=== PATIENT | male | born 1940 | race Caucasian/White ===

== ENCOUNTER 2018-12-20 13:59 | Inpatient (IN) ==
--- OUTSIDE RECORDS SUMMARY | 2018-12-20 14:58 | External Medical Summary | Continuity of Care Document ---
:1940 Author Name Chantel Pacheco Address Unavailable Unavailable , Care Team Providers Name Role Phone Unavailable Unavailable Unavailable Samy Springer M.D. 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 Junior Springer Start: 10-Mar-2014 Quantity: 60 Refills: 0 OneTouch Delica Lancets Fine; test twice daily Junior Springer Start: 26-Dec-2013 Quantity: 1 100 Miscellaneous Michael x Refills: 11 OneTouch Verio In Vitro Strip; Test 2 times daily Junior Springer Start: 26-Dec-2013 Quantity: 3 25 Strip Box Refills: 11 Spiriva Respimat 2.5 MCG/ACT Inhalation Aerosol Solution; INHALE 2 PUFFS ONCE DAILY Junior Springer Start: 13-Jun-2014 Quantity: 1 4 GM Inhaler Refills: 11 Procedures History of Tonsillectomy Status: Complet ed History of Bronchoscopy (Diagnostic) Sta tus: Completed History of Thoracoscopy (Therapeutic) St atus: Completed History of Thoracotomy Status: Completed Immunizations Prevnar 13 Intramuscular Suspension On: 26-Dec-2013 11:05 Lot #: [id number], iPrint Family History Mother Family history of Cirrhosis, alcoholic (571.2) (K70.30) Stat us: Active Father Family history of Cirrhosis, alcoholic (571.2) (K70.30) Stat us: Active Social History - Smoking Status Former smoker Interventions SuppliesOxygen; Done: 18 Oct 2014 Plan of Treatment Planned Observations Planned Goals not documented Results No Known Results Results not documented
[2018-12-20] MEDS ORDERED: ONDANSETRON INJ 2 MG/ML 2 ML VIAL IV PRN (15:52)
[2018-12-20] MEDS ORDERED: ACETAMINOPHEN 325 MG TAB PO PRN (15:52)
[2018-12-20 16:58] LABS: Creatinine Clr Calc Pharmacy 46.3 ml/min; Est GFR (African American) 55.2; Est GFR (Non-African American) 47.6
[2018-12-20] MEDS: ENOXAPARIN INJ 40 MG/0.4 ML SYR SQ SCH (18:03)
--- NOTE | 2018-12-20 20:29 | History & Physical Report ---
Date of Service December 20, 2018 Assessment & Plan (1) Pneumonia: community acquired pneumonia mild case, no fever, WBC normal, no hypoxia Rocephin and Zithromax, plan for 7 day course may be ready for d/c tomorrow if urology does not wish to perform any inpatient work up (2) Renal mass: incidental finding on CTA chest at [facility] consult urology to see tomorrow no hematuria, no flank pain, no weight loss (3) Lower urinary tract symptoms (LUTS): admits to frequency, urgency, hesitancy, several episodes of nocturia each night no hematuria urology consult for the renal mass, defer to them on treatment for the LUTS (4) Chronic obstructive pulmonary disease: no wheezing, no respiratory distress, no signs of exacerbation (5) Diabetes type 2, controlled: diagnosed with this in 2013 he was started on Metformin at that time no longer taking check HbA1c in the AM (6) Tobacco abuse, in remission: quit in 2013 (7) CKD stage 3 due to type 2 diabetes mellitus: Cr is 1.4 repeat in the morning (8) Adrenal mass: also evident on CT in 2013 no access to outpatient records with [facility], was supposed to have renin, metanephrines presume that work up was benign as he did not require any surgical intervention History of Present Illness Chief Complaint: I wasn't feeling well Primary Care Provider: Stanislav Chen 78 male with history of COPD, tobacco abuse in the past, right upper lobe mass s/p resection who was transferred to [facility] due to right upper lobe pneumonia as well as incidental finding of left renal mass, left adrenal mass and small 7mm abnormality in the liver. He said that he was feeling ill for two days prior to presentation. He had a fever, chills, night sweats. He had a slight cough, was not producing much sputum. His appetite was intact. He has been moving his bowels. Denies feeling short of breath or wheezing. He had his pneumonia vaccine last week and he though that maybe the symptoms were due to the shot but when they didn't go away he went to the ED at [facility]. In the ED his WBC was normal, he was afebrile, vitals were stable, not hypoxic. Cr was elevated at 1.4 but electrolytes stable. CXR showed a right upper lobe infiltrate. CTA of the chest was negative for PE, showed the right upper lobe infiltrate. Incidental finding of left renal mass, left adrenal mass, small lesion in the liver. He was given Rocephin and Zithromax, transfer requested due to the renal mass which their radiologist considered renal cell carcinoma until proven otherwise. The patient quit smoking in 2013 after he was hospitalized for pneumonia. He had a bronchoscopy at that time for possible lung mass. He had biopsy that was negative for malignancy. He underwent resection of several large lymph nodes that were all negative for malignancy. He was diagnosed with COPD on PFT, he is prescribed Spiriva which he takes. He has not had any issues with COPD exacerbation. Of note, on the discharge summary from 2013 there was mention of an adrenal mass that was going to be worked up by endocrinology outpatient with [facility]. There was also description of a small liver lesion. He was told that he had type II diabetes at that time and was started on Metformin. The patient admits that he does not follow up regularly with his physician. Discussed the renal mass, he admits to some lower urinary tract symptoms. He describes urinary frequency, urgency, nocturia. He denies seeing any hematuria or experiencing dysuria. 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 Allergies Allergy/AdvReac Type Severity Reaction Status Date / Time No Known Allergies Allergy Unverified 12/16/14 10:25 Home Medications Home Medications Medication Instructions Recorded Confirmed Type Albuterol (Ventolin) 2 puff INHALATION QID PRN 5 Days 11/26/13 History #0 inhaler Tiotropium [place] (Spiriva 1 cap INHALATION DAILY PRN #0 11/20/14 History Handihaler) inhaler Past Med/Surg History Medical History CKD stage 3 due to type 2 diabetes mellitus Chronic obstructive pulmonary disease Colon polyp Diabetes type 2, controlled Pneumonia Tobacco abuse, in remission Surgical History H/O colonoscopy H/O lymph node biopsy History of bronchoscopy Family History Other Hypertension Social History Preferred Language: Divehi Communication Ability: Effective Beliefs That Will Affect Care: Holiness Current Living Situation: Spouse Other Information That Helps Us Care for You: No Feels Safe at Home: Yes Smoking Status: Former smoker Second Hand Exposure: No ; Tobacco Cessation Education Requested by Patient: No Hx Alcohol Use: No Hx Substance Use: No Review of Systems Review of Systems: All systems reviewed & are unremarkable except as noted in HPI & below Constitutional: + fever, + chills, + sweats, + fatigue and + weakness Respiratory: + cough; no dyspnea, no hemoptysis, no sputum production and no wheezing Cardiovascular: no chest pain and no edema Gastrointestinal: no abdominal pain, no nausea, no vomiting, no constipation and no diarrhea/loose stools Genitourinary: + difficulty urinating, + urinary frequency, + urinary hesitancy, + post-void dribbling and + nocturia; no dysuria, no urinary incontinence and no hematuria Physical Exam Constitutional: WD/WN, vitals as above Eyes: PERRL, conjunctivae normal, anicteric sclerae ENMT: external ear and nose normal, oropharynx normal Neck: trachea midline, no thyromegaly Respiratory: normal respiratory effort and + cough; no respiratory distress Auscultation: lungs clear to auscultation bilaterally; no wheezes Cardiovascular: RRR, no murmur, no edema Gastrointestinal (Abdomen): normal bowel sounds, soft, nontender, no hepatosplenomegaly Musculoskeletal: no cyanosis or clubbing, extremities motor strength 5/5 Skin: no rashes, warm and dry Neurologic: patellar DTR's 2+ bilat, sensation intact and PERRL, EOMI, accommodation nl, no face palsy, no dysarthria Psychiatric: A+Ox3, euthymic affect Lymphatic: no cervical or axillary lymphadenopathy Results & Data Vital Signs (Past 12 Hours) Vital Signs Temp Resp Pulse Ox 12/20/18 15:01 36.3 C L 20 96 Code Status & VTE Plan Code Status full code VTE Prophylaxis Plan VTE Prophylaxis will be ordered: Yes PG Care Time/CCT Total # of Minutes Spent Total Time Spent with Patient: Total time spent is greater than 50% in coordination of care (as documented) at patient's floor/unit and/or counseling patient:
[2018-12-21 05:46] LABS: Hematocrit (blood only) 37.8 % (42-52); Immature Granulocytes # (auto) 0.04 K/uL (0.00-0.02); Immature Granulocytes % (auto) 0.3 %; Lymphocytes # (auto) 0.82 K/uL (1.2-3.4); Lymphocytes % (auto) 6.5 %; Mean Corpuscular Hemoglobin 30.4 pg (25-34); Mean Corpuscular Hgb Conc 34.4 g/dL (32-36); Mean Corpuscular Volume 88.3 fL (80-100); Mean Platelet Volume 10.5 fL (7.4-10.4); Monocytes # (auto) 0.44 K/uL (0.11-0.59); Monocytes % (auto) 3.5 %; Neutrophils # (auto) 11.39 K/uL (1.4-6.5); Neutrophils % (auto) 89.7 %; Platelet Count 192 K/uL (130-400); RDW Coefficient of Variation 12.2 % (11.5-14.5); Red Blood Count 4.28 M/uL (4.7-6.1); White Blood Count 12.69 K/uL (4.8-10.8)
[2018-12-21 05:57] LABS: Estimated Average Glucose 114 mg/dl; Hemoglobin A1C 5.6 % (4.5-5.6)
[2018-12-21 06:14] LABS: BUN Creatinine Ratio 23.2 (10-20); Calcium 8.8 mg/dl (8.5-10.1); Creatinine Clr Calc Pharmacy 58.2 ml/min; Est GFR (African American) 72.8; Est GFR (Non-African American) 62.8; Potassium 4.2 mmol/L (3.5-5.1)
[2018-12-21] MEDS ORDERED: cefTRIAXone SODIUM 2,000 MG in DEXTROSE 5% 50 ML IV SCH (09:00)
[2018-12-21] MEDS ORDERED: AZITHROMYCIN 250 MG TAB PO SCH (09:00)
--- NOTE | 2018-12-21 10:34 | Urology Consultation ---
Date of Consultation December 21, 2018 Assessment & Plan (1) Lower urinary tract symptoms (LUTS): 2cm left upper pole renal mass, 3.7cm left adrenal mass, minor LUTS consistent with BPH. Discussed left renal and adrenal mass and need for further outpatient workup. Patient is agreeable to this. LUTS are baseline, not bothersome. Appropriate outpatient URO follow up has been arranged. Thank you for allowing us to participate in the inpatient care of Mr. Ruiz. Please contact our servi ce if we can assist further during hospitalization. (2) Adrenal mass: (3) Renal mass: History of Present Illness Attending Physician: Gustabo Murray DO History of Present Illness 78 YO male seen today in consultation for incidentally found left renal mass. Patient has COPD and history of lung surgery, admitted to [facility] and then transferred to [facility]. Patient had CT chest completed at [facility] which reports a 2cm renal mass in left upper pole as well as a 3.7cm left adrenal mass metastasis vs. adenoma. Patient reports that he has never seen a urologist before. Reports some baseline LUTS including nocturia, somewhat increased frequency, consistent with BPH. No abdominal/flank pain. No fevers/chills. No nausea/vomiting. Allergies Allergy/AdvReac Type Severity Reaction Status Date / Time No Known Allergies Allergy Unverified 12/16/14 10:25 Home Medications Home Medications Medication Instructions Recorded Confirmed Type Albuterol (Ventolin) 2 puff INHALATION QID PRN 5 Days 11/26/13 History #0 inhaler Tiotropium [place] (Spiriva 1 cap INHALATION DAILY PRN #0 11/20/14 History Handihaler) inhaler Patient History Medical History CKD stage 3 due to type 2 diabetes mellitus Chronic obstructive pulmonary disease Colon polyp Diabetes type 2, controlled Pneumonia Tobacco abuse, in remission Surgical History H/O colonoscopy H/O lymph node biopsy History of bronchoscopy Family History Other Hypertension Social History Preferred Language: Ukrainian Communication Ability: Effective Beliefs That Will Affect Care: Jehovah'S Witness Current Living Situation: Spouse Other Information That Helps Us Care for You: No Feels Safe at Home: Yes Smoking Status: Former smoker Second Hand Exposure: No ; Tobacco Cessation Education Requested by Patient: No Hx Alcohol Use: No Hx Substance Use: No Review of Systems Review of Systems: Per HPI. Physical Exam Physical Exam: WN/WD NAD. +productive cough. No JVD. Abd soft/nontender. A&Ox3, appropriate affect. Results & Data Vital Signs (Past 12 Hours) Vital Signs Temp Pulse Resp BP Pulse Ox 12/21/18 07:14 36.8 C 83 20 134/65 92 12/20/18 23:30 36.4 C L 18 117/70 95 PG Care Time/CCT Total # of Minutes Spent Total Time Spent with Patient: Total time spent is greater than 50% in coordination of care (as documented) at patient's floor/unit and/or counseling patient:
--- NOTE | 2018-12-21 11:56 | Discharge Summary ---
Date of Service December 21, 2018 Admission HPI Per Admitting Provider 78 male with history of COPD, tobacco abuse in the past, right upper lobe mass s/p resection who was transferred to [facility] due to right upper lobe pneumonia as well as incidental finding of left renal mass, left adrenal mass and small 7mm abnormality in the liver. He said that he was feeling ill for two days prior to presentation. He had a fever, chills, night sweats. He had a slight cough, was not producing much sputum. His appetite was intact. He has been moving his bowels. Denies feeling short of breath or wheezing. He had his pneumonia vaccine last week and he though that maybe the symptoms were due to the shot but when they didn't go away he went to the ED at [facility]. In the ED his WBC was normal, he was afebrile, vitals were stable, not hypoxic. Cr was elevated at 1.4 but electrolytes stable. CXR showed a right upper lobe infiltrate. CTA of the chest was negative for PE, showed the right upper lobe infiltrate. Incidental finding of left renal mass, left adrenal mass, small lesion in the liver. He was given Rocephin and Zithromax, transfer requested due to the renal mass which their radiologist considered renal cell carcinoma until proven otherwise. The patient quit smoking in 2013 after he was hospitalized for pneumonia. He had a bronchoscopy at that time for possible lung mass. He had biopsy that was negative for malignancy. He underwent resection of several large lymph nodes that were all negative for malignancy. He was diagnosed with COPD on PFT, he is prescribed Spiriva which he takes. He has not had any issues with COPD exacerbation. Of note, on the discharge summary from 2013 there was mention of an adrenal mass that was going to be worked up by endocrinology outpatient with [facility]. There was also description of a small liver lesion. He was told brian t he had type II diabetes at that time and was started on Metformin. The patient admits that he does not follow up regularly with his physician. Discussed the renal mass, he admits to some lower urinary tract symptoms. He describes urinary frequency, urgency, nocturia. He denies seeing any hematuria or experiencing dysuria. 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 Principal Diagnosis Right upper lobe pneumonia Discharge Exam Constitutional WD/WN, vitals as above Eyes PERRL, conjunctivae normal, anicteric sclerae ENMT external ear and nose normal, oropharynx normal Neck trachea midline, no thyromegaly Respiratory normal respiratory effort and + cough; no respiratory distress Auscultation: lungs clear to auscultation bilaterally; no wheezes Cardiovascular RRR, no murmur, no edema Gastrointestinal (Abdomen) normal bowel sounds, soft, nontender, no hepatosplenomegaly Musculoskeletal no cyanosis or clubbing, extremities motor strength 5/5 Skin no rashes, warm and dry Neurologic patellar DTR's 2+ bilat, sensation intact and PERRL, EOMI, accommodation nl, no face palsy, no dysarthria Psychiatric A+Ox3, euthymic affect Lymphatic no cervical or axillary lymphadenopathy Discharge Data Allergies Allergy/AdvReac Type Severity Reaction Status Date / Time No Known Allergies Allergy Unverified 12/16/14 10:25 Consultations 12/20/18 15:56 Consult Case Management - Discharge Planning Routine 12/20/18 20:22 Consult Urology Routine Hospital Course (1) Pneumonia: community acquired pneumonia mild case, no fever, WBC normal on admission, up very slightly at 11k today, no hypoxia Rocephin and Zithromax, d/c on Cefdinir 300mg BID x 5 more days, Zithromax 500mg daily x 4 more days follow up with PCP in one week RECOMMEND REPEAT CXR IN 6 WEEKS TO DOCUMENT CLEARANCE OF INFILTRATE (2) Renal mass: incidental finding on CTA chest at [facility] 2cm mass on upper pole of left kidney urology recommends follow up in the clinic in a few weeks to discuss work up (3) Lower urinary tract symptoms (LUTS): admits to frequency, urgency, hesitancy, several episodes of nocturia each night no hematuria no plan for treatment at this time per urology could consider if the symptoms bother him, which they do not (4) Chronic obstructive pulmonary disease: no wheezing, no respiratory distress, no signs of exacerbation (5) Diabetes type 2, controlled: diagnosed with this in 2013 he was started on Metformin at that time no longer taking Hb A1c is 5.6% so he does NOT have DM (6) Tobacco abuse, in remission: quit in 2013 (7) CKD stage 3 due to type 2 diabetes mellitus: Cr is stable, 1.1 this morning (8) Adrenal mass: also evident on CT in 2013 no access to outpatient records with [facility], was supposed to have renin, metanephrines presume that work up was benign as he did not require any surgical intervention (9) Liver lesion: also noted on the CT at [facility] small at 7mm differential was hemangioma, liver met or HCC would recommend repeat imaging in 3 months he will have a work up of the left renal mass which should be top priority Total Time Total Time Spent Total Time Spent (In Minutes): 35 minutes Total Time Includes: Examination of the Patient, Discharge Planning, Medication Reconciliation and Communication With Other Providers Discharge Plan Discharge Items Patient Disposition: Home - Self-Care Reason For Visit: PNEUMONIA Discharge Diagnosis: Right upper lobe pneumonia left renal mass Condition on Discharge: Good Goals: complete treatment for pneumonia follow up with [facility] for work up of renal mass Activity: Resume your previous activity Non-emergency contact: Primary Care Provider Call non-emergency contact if: you have any medication questions, your symptoms worsen and you have a fever Follow-up/Referrals: Stanislav Chen [Primary Care Provider] - Diet: Regular Addtl Attending Provider Instructions: Medications: - CEFDINIR: take 300mg twice a day for 5 more days, next dose due tomorrow morning - ZITHROMAX: take 500mg daily for 4 more days, next dose due tomorrow morning Right upper lobe pneumonia no fever, WBC normal, responded well to Rocephin and Zithromax (antibiotics) CT of the chest shows the right upper lobe infiltrate, no evidence of a lung mass recommend repeating chest x-ray to document clearance of the infiltrate in 6 weeks, Dr. Chen can order this for you on follow up visit Left renal mass and left adrenal mass h/o adrenal mass on CT in 2013 but the renal mass is new finding seen here by Urology, recommend follow up in the office for further work up and recommendations their office number is [phone] recommend that you see them in 2-3 weeks after your pneumonia is sufficiently treated FOLLOW UP - Dr. Chen in one week, call his office to schedule appt in 5-7 days - [facility] in 2-3 weeks, see above Pending Studies at Discharge: No Stand-Alone Forms: My [employer], Smoking Cessation Medications and DC Order Prescriptions: New azithromycin 500 mg tablet 500 mg PO DAILY 4 Days Qty: 4 RF: 0 cefdinir 300 mg capsule 300 mg PO BID 5 Days Qty: 10 RF: 0 Continued Albuterol (Ventolin) inhaler 2 puff Inhalation QID PRN (Reason: qid) 5 Days Qty: 0 RF: 0 Tiotropium [place] (Spiriva Handihaler) 18 MCG/ AEROSOL,POWDR 1 cap Inhalation DAILY PRN (Reason: Wheezing) Qty: 0 RF: 0 Discharge Orders: Discharge Order (Routine); Ordered 12/21/18 Ordered By: Gustabo Murray Admission Data Admit Date/Time: 12/20/18 14:55 Attending Provider: Gustabo Murray Admit Provider: Gustabo Murray Primary Care Provider: Stanislav Chen Other Providers: Sravan Espino Other Interventions: Discharge Summary Assessment (RN) Last Done: 12/21/18 11:53 DC Date/Time DO NOT enter until pt leaves facility: 12/21/18 14:36
== END 2018-12-21 14:36 | disposition home or self-care (01) | DRG 195 ==
LOC: 4W 14:55

== ENCOUNTER 2019-09-17 05:26 | Observation (INO) ==
--- NOTE | 2019-09-06 09:38 | Anesthesiology Consultation ---
Date of Service September 06, 2019 Assessment & Plan (1) Encounter for pre-operative examination: Per PAT assessment on 09/05: Travel screen- Lives in [facility]. No known COVID-19 positive contacts. No current COVID-19 related symptoms. Per patient, surgeon arranging preop COVID testing for 09/11. Awaiting results. Chart Review Chart Review: Acceptable Risk for Surgery (pending COVID testing) and Patient seen in Pre Admission Testing Teaching & Discussion Pre-Anesthesia Teaching/Discussion Notes: Instructed NPO after midnight before surgery,except medications with 15 cc of water. Medication instructions provided according to the PAT guidelines. History Surgery Operation Date: 09/17/19 07:30 Proposed Procedures p Left Hand Assisted Laparoscopic Nephrectomy/Adrenalecctomy - Sravan Espino MD Height/Weight Height: 5 ft 8 in Weight: 80.6 kg Allergies Allergy/AdvReac Type Severity Reaction Status Date / Time No Known Allergies Allergy Verified 09/04/19 11:47 Medications Home Medications Medication Instructions Recorded Confirmed Last Taken No Known Home Medications 09/04/19 09/04/19 Unknown Past Medical History Medical History Adrenal mass per records Lung nodule (Inactive) Prediabetes Renal mass left Exercise / Class Metabolic Activity II 4-5 Yardwork/Stairs/Walk up hill Past Family History Family History Father Cirrhosis Mother Cirrhosis Sister Family history of diabetes mellitus Other Hypertension Past Surgical History Surgical History H/O lymph node biopsy History of bronchoscopy X2, EBUS with biopsy: 09/30/13: Grade 1 view, MAC#4, ETT 9.0 at [facility] History of colonoscopy History of lung surgery UPPER RT LUNG MASS REMOVED (BENIGN) History of tonsillectomy History of tooth extraction Past Anesthesia History No Hx of Anesthesia Complications and No Family Hx of Anesthesia Complications History of PONV No Hx of PONV and No Hx of Motion Sickness Social History Smoking Status: Former smoker tobacco type: cigarettes Do You Dip or Chew Tobacco: No Smoking End Date: Quit 5 YEARS AGO Hx Alcohol Use: No Hx Substance Use: No Review of Systems Patient denies chest pain, shortness of breath, dyspnea on exertion, feverl chills, cough, wheezing, palpitations. Physical Exam Vital Signs VITALS BP 150/81 P 60 TEMP 97.6 SP02 96%RA RESP 16 PHYSICAL Full neck and c-spine range of motion. Full TMJ range of motion. TMD 3 finger breaths Mallampati Score 3 Dentition: lower partial, upper front bonded tooth, lower front bridge, left lower side tooth mildly loose (dentist aware) Lungs: clear throughout to auscultation Cardiac: regular rate and rhythm, no murmurs noted Spine: normal Carotid arteries: negative bruit Extremities: no edema Testing Laboratory Results 09/06/19 10:03 09/06/19 10:03 Urine Color Yellow 09/06/19 Unknown Urine Appearance Clear (Clear) 09/06/19 Unknown Urine pH 5.5 (4.5-7.5) 09/06/19 Unknown Ur Specific [place] 1.010 (1.000-1.030) 09/06/19 Unknown Urine Protein Negative (Negative) 09/06/19 Unknown Urine Glucose (UA) Negative (Negative) 09/06/19 Unknown Urine Ketones Negative (Negative) 09/06/19 Unknown Urine Nitrite Negative (Negative) 09/06/19 Unknown Ur Leukocyte Esterase Negative (Negative) 09/06/19 Unknown Blood Type O Positive 09/06/19 10:03 Antibody Screen NEGATIVE 09/06/19 10:03 Electrocardiogram Date: 09/06/19 SB at 54bpm. RBBB. Possible inferior infarct. Good functional status, no cardiopulmonary complaints at PAT visit 09/06/19. Chest X-Ray Date: 09/06/19 FINDINGS: Chronic scarring and pleural thickening right pulmonary apex. Lungs otherwise appear clear. Diaphragms are smooth. No significant cardiac enlargement. IMPRESSION: Chronic change right apex. No acute process. Echocardiogram Date: 09/30/13 EF 60-65%. No RWMA. Grade I DD. No significant valvular disease.
--- NOTE | 2019-09-06 10:27 | XRay Report ---
XR chest Pre-admission PA/Lat CLINICAL HISTORY: PAT preoperative COMPARISON STUDY: 01/11/2019 FINDINGS: Chronic scarring and pleural thickening right pulmonary apex. Lungs otherwise appear clear. Diaphragms are smooth. No significant cardiac enlargement. IMPRESSION: Chronic change right apex. No acute process. ACT 112: Negative or not required by law. The above report was generated using voice recognition software. It may contain grammatical, syntax or spelling errors. Electronically signed by: Forrest Alejandra M.D. 09/06/2019 10:26 AM
[2019-09-06 10:42] LABS: Basophils # (auto) 0.03 K/uL (0-0.2); Basophils % (auto) 0.6 %; Eosinophils # (auto) 0.06 K/uL (0-0.5); Eosinophils % (auto) 1.1 %; Hemoglobin 15.6 g/dL (14.0-18.0); Immature Granulocytes # (auto) 0.02 K/uL (0.00-0.02); Immature Granulocytes % (auto) 0.4 %; Lymphocytes % (auto) 18.4 %; Mean Corpuscular Hemoglobin 30.5 pg (25-34); Mean Corpuscular Hgb Conc 34.7 g/dL (32-36); Mean Corpuscular Volume 88.1 fL (80-100); Mean Platelet Volume 10.3 fL (7.4-10.4); Monocytes # (auto) 0.36 K/uL (0.11-0.59); Monocytes % (auto) 6.6 %; Neutrophils # (auto) 3.97 K/uL (1.4-6.5); Neutrophils % (auto) 72.9 %; Platelet Count 157 K/uL (130-400); RDW Coefficient of Variation 12.2 % (11.5-14.5); RDW Standard Deviation 38.8 fL (36.4-46.3); Red Blood Count 5.11 M/uL (4.7-6.1); White Blood Count 5.44 K/uL (4.8-10.8)
[2019-09-06 10:45] LABS: Appearance Urine Clear (Clear); Bilirubin Urine Negative (Negative); Blood Urine Negative (Negative); Color Urine Yellow; Glucose Urine UA Negative (Negative); Ketones Urine Negative (Negative); Leukocyte Esterase Urine Negative (Negative); Nitrite Urine Negative (Negative); Protein Urine Negative (Negative); Urobilinogen Urine Negative (Negative); pH Urine 5.5 (4.5-7.5)
[2019-09-06 11:02] LABS: BUN Creatinine Ratio 16.1 (10-20); Calcium 9.2 mg/dl (8.5-10.1); Creatinine Clr Calc Pharmacy 49.9 ml/min; Est GFR (African American) 67.2; Potassium 3.9 mmol/L (3.5-5.1)
--- NOTE | 2019-09-06 12:56 | Electrocardiogram Report ---
Test Reason : Blood Pressure : / mmHG Vent. Rate : 054 BPM Atrial Rate : 054 BPM P-R Int : 160 ms QRS Dur : 142 ms QT Int : 462 ms P-R-T Axes : 065 -25 049 degrees QTc Int : 438 ms Sinus bradycardia Right bundle branch block Possible Inferior infarct , age undetermined Abnormal ECG When compared with ECG of 26-NOV-2013 09:17, Right bundle branch block is now Present Borderline criteria for Inferior infarct are now Present Confirmed by Stanley Carpenter ([id number]) on 09/06/2019 12:56:41 PM Referred By: Sravan Espino Confirmed By:Red Carpenter
[2019-09-17] MEDS ORDERED: LR 15ML/HR IV SCH (06:00)
[2019-09-17] MEDS ORDERED: CEFAZOLIN 2000MG 2,000 MG/15 ML SYR IV SCH (06:00)
[2019-09-17] MEDS ORDERED: HEPARIN SOD 5,000 UNIT/0.5 ML VIAL SC SCH (06:00)
[2019-09-17] MEDS ORDERED: ONDANSETRON INJ 2 MG/ML 2 ML VIAL IV PRN ×2 (06:32→12:04)
[2019-09-17] MEDS ORDERED: ePHEDrine sulfate 50 MG/ML AMP IV PRN (06:32)
[2019-09-17] MEDS ORDERED: ATROPINE SULFATE 0.1 MG/ML 10ML SYR IV PRN (06:32)
[2019-09-17] MEDS ORDERED: BUPIVACAINE 0.5 % 5 MG/1 ML MPF 30ML VIAL ONE (07:01)
[2019-09-17] MEDS ORDERED: fentaNYL citrate 100 MCG/2 ML VIAL ONE ×2 (07:08→08:16)
[2019-09-17] MEDS ORDERED: MIDAZOLAM HCL 1 MG/ML 2ML VIAL ONE (07:08)
[2019-09-17] MEDS ORDERED: ROCURONIUM BROMIDE 10 MG/ML 5 ML VIAL IV ONE (07:19)
--- NOTE | 2019-09-17 07:20 | History & Physical Bridge Note ---
Date of Service September 17, 2019 History & Physical Bridge Note I have examined the patient, reviewed the History & Physical and in the interval since the performance of the History & Physical I have noted the following changes of clinical significance: no changes noted
[2019-09-17] MEDS ORDERED: LIDOCAINE HCL 2% 2 ML VIAL/AMP(20MG/ML) INFIL ONE (08:16)
[2019-09-17] MEDS ORDERED: GLYCOPYRROLATE 0.2 MG/ML VIAL ONE (08:16)
[2019-09-17] MEDS ORDERED: DEXAMETHASONE SOD INJ 4 MG/ML VIAL ONE (08:16)
[2019-09-17] MEDS ORDERED: PHENYLEPHRINE 100MCG/ML 5ML SYR ONE (08:16)
[2019-09-17] MEDS ORDERED: PROPOFOL IV EMULSION 10 MG/ML 20 ML VIAL IV ONE (08:16)
[2019-09-17] MEDS ORDERED: NEOSTIGMINE METHYLSULFATE 5 MG/5 ML SYR ONE (08:16)
[2019-09-17] MEDS ORDERED: LARYING-O-JET KIT (LTA) ONE (08:16)
[2019-09-17] MEDS ORDERED: ONDANSETRON INJ 2 MG/ML 2 ML VIAL ONE (08:16)
[2019-09-17] MEDS ORDERED: ePHEDrine sulfate 50 MG/ML SYR ONE (08:16)
--- NOTE | 2019-09-17 09:45 | Operative Report ---
PG Post Operative Report Pre & Post Diagnosis Operation Date: 09/17/19 07:30 Pre-Op Diagnosis: Left Renal Mass, Left Adrenal mass Post-Op Diagnosis: Left Renal Mass, Left Adrenal mass I identified the patient and participated in the time-out.: Yes Procedure Operation Date: 09/17/19 07:30 Actual Procedures p Laparoscopic Hand Assisted Left Nephrectomy and Adrenalectomy(Left) - Sravan Espino MD Surgeon Stanley Espino MD Case Supervisor Fang Alfaro Estimated Blood Loss 100 Findings Consistent with Post-Op Diagnosis Specimens 1. Omental nodule 2. Kidney with adrenal Description of Procedure Patient was identified in the preoperative holding area, appropriate informed consents were reviewed and completed and he was transported to the operating suite. Upon arrival received appropriate preoperative antibiotics in the form of Ancef. Adequate general anesthesia was achieved and he was placed in a [id number] left side up lateral decubitus position where he was padded and braced in standard fashion. Following appropriate sterile prep and drape a Fowler style incision was made at the anticipated lower border of the kidney on the left lateral wall of the abdomen. This incision started at the lateral border of the rectus and was carried out laterally for approximately 10 cm. I carefully dissected through the superficial tissues until I identified the external oblique fascia. This was opened longitudinally in the direction of the fibers. I subsequently opened the internal oblique and the transversalis. I then pierced the peritoneum sharply and performed a finger sweep confirming a clear abdominal wall. I expanded my incision of the peritoneum to match my external incision and placed a GelPort retractor. Elevating the lateral wall of the abdomen I began to incise the white line of Toldt and mobilized the kidney medially. I carried this is far cephalad as I could reach through this incision. Of note, shortly after inspecting the internal aspect of the abdomen I noted a nodule on the omentum. This was white and hard in appearance. I excised this utilizing Bovie electrocautery and passed off the table as a specimen. I then asked the HandPort and insufflated the abdomen by placing a 12 mm trocar through the hand port. I passed the laparoscope and inspected. I confirmed a clear abdominal wall in the locations where I would like to place my photographer's assistant ports. I placed my hand back to the GelPort and advanced to 12 mm photographer's assistant ports on to my hand. The first was along the lateral border of the rectus around 6 cm below the costal margin. The other was approximately 8 cm below that. To begin the laparoscopic portion of the case I first inspected again and then began to continue my mobilization of the colon medially. I had dissected up to the upper pole of the kidney and I had the lateral attachments between the corner of the diaphragm, spleen and kidney that was still remaining. I incised these connections and then continued my peritoneal incision just inferior to the spleen to fully mobilize the colon medially. I was able to palpate the upper pole of the kidney at that time as well as the adrenal nodule. I began to continue to trace the anterior surface and superior surface of Gerota's fascia along the superior area to continue mobilization of the kidney. After reaching my limits in this area I turned my attention back to the inferior pole of the kidney. I continued mobilization of the inferior aspect of the colon until I could easily identify the full lower pole of the kidney. On the medial aspect of this identify the gonadal vein and I began to follow the anterior surface of the gonadal vein along the medial surface of the kidney. As I reached the hilar structures I easily identified a renal vein and could easily palpate the renal artery immediately behind it. I did create a window medial to the gonadal vein and ureter and used this to sweep onto the psoas muscle and elevate the kidney and stretch the hilar structures to facilitate this full dissection. Majority of this dissection was carried out utilizing a combination of blunt dissection and harmonic scalpel. After exposing the full surface circumferentially of the vein and palpating the artery immediately posterior to it, I created a window superior and passed a staple load to control the hilar structures and block. Of note, on preoperative imaging it appears that he may have a small branch of the artery that was passing anteriorly or a separate artery altogether. This was controlled with the same staple load. I controlled the vein medial to the adrenal vein and then I fired an additional staple load along the medial surface of the adrenal it from the aorta and other medial structures. Before completing my adrenal dissection I turned my attention to the inferior pole of the kidney and I controlled Gerota's fascia, the ureter, the gonadal vein with a single staple load in this area. Utilizing the harmonic scalpel I was able to complete my posterior and lateral dissection entirely freeing the lateral portion of the kidney. My previous dissection in the superior pole of the kidney help facilitate easy dissection of the upper corner of the kidney. I was able to trace the anterior surface of the adrenal and gently dissect superiorly to it ensuring I controlled all phrenic connections. On the medial side of the adrenal like used 1 additional staple load to complete my dissection. This entirely freed the kidney with adrenal included. The specimen was then extracted through the hand port. I then observe the renal fossa and found excellent hemostasis. As a precaution I did place some FloSeal along the medial edge of my dissection, the lateral edge of the aorta. I then gently guided the colon and omentum back into this space and removed the laparoscopic ports. I proceeded to close the hand port in 4 different layers beginning by reapproximating the peritoneum followed by the transversalis, then the internal oblique and the external oblique and ultimately closing the skin with a 4-0 running Monocryl. I did infiltrate all layers with half percent Marcaine in the midst of closure. The 2 upper laparoscopic ports were closed with a Vicryl through the fascia followed by 4-0 Monocryl for the skin. Patient was subsequently extubated and taken to the PACU in stable condition. There were no complications. Bindu Pemberton and Fang Koehler assisted me from incision to closure. I attest to the content of the Intraoperative Record and any orders documented therein. Any exceptions are noted below.
[2019-09-17] MEDS ORDERED: FLOSEAL HEMOSTATIC MATRIX 10ML TOP ONE (09:50)
[2019-09-17] MEDS: fentaNYL citrate 100 MCG/2 ML VIAL IV PRN ×3 (10:20→11:00)
[2019-09-17 10:48] LABS: Basophils # (auto) 0.02 K/uL (0-0.2); Basophils % (auto) 0.1 %; Eosinophils # (auto) 0.02 K/uL (0-0.5); Eosinophils % (auto) 0.1 %; Hematocrit (blood only) 44.1 % (42-52); Immature Granulocytes # (auto) 0.04 K/uL (0.00-0.02); Immature Granulocytes % (auto) 0.3 %; Lymphocytes # (auto) 0.92 K/uL (1.2-3.4); Lymphocytes % (auto) 6.9 %; Mean Corpuscular Hemoglobin 30.6 pg (25-34); Mean Platelet Volume 10.1 fL (7.4-10.4); Monocytes # (auto) 0.13 K/uL (0.11-0.59); Neutrophils # (auto) 12.25 K/uL (1.4-6.5); Neutrophils % (auto) 91.6 %; Platelet Count 166 K/uL (130-400); RDW Coefficient of Variation 12.1 % (11.5-14.5); RDW Standard Deviation 39.6 fL (36.4-46.3); White Blood Count 13.38 K/uL (4.8-10.8)
[2019-09-17 11:21] LABS: Calcium 8.8 mg/dl (8.5-10.1); Creatinine Clr Calc Pharmacy 42.4 ml/min; Est GFR (African American) 55.3; Est GFR (Non-African American) 47.7; Potassium 4.1 mmol/L (3.5-5.1)
--- NOTE | 2019-09-17 11:26 | Anesthesiology Progress Note ---
Date of Service September 17, 2019 Anesthesia Post Procedure Vital Signs Vital Signs: Temp Pulse Pulse Resp BP BP Pulse Ox 09/17/19 11:10 97.2 F L 45 L 15 160/75 H 94 09/17/19 11:00 43 L 15 161/81 H 95 09/17/19 10:50 44 L 14 167/79 H 97 09/17/19 10:40 44 L 12 162/75 H 98 09/17/19 10:30 40 L 12 171/77 H 94 09/17/19 10:20 40 L 15 151/77 H 100 09/17/19 10:10 44 L 16 175/80 H 100 09/17/19 10:02 97.9 F 45 L 16 173/85 H 100 09/17/19 05:56 97.9 F 74 18 174/96 H 97 Pain Intensity Abdomen: Pain Intensity: 3 Transfer of Care Handoff Completed per policy Notes Mental Status: alert / awake / arousable and participated in evaluation Patient Amnestic to Procedure: Yes Nausea / Vomiting: adequately controlled Pain: adequately controlled Airway Patency, RR, SpO2: stable & adequate BP & HR: stable & adequate Hydration State: stable & adequate Anesthetic Complications: no major complications apparent and Pt Satisfied with anesthetic care
[2019-09-17] MEDS ORDERED: ACETAMINOPHEN 325 MG TAB PO PRN (12:04)
[2019-09-17] MEDS ORDERED: OXYCODONE HCL IR 5 MG TAB (IMMEDIATE RELEASE) PO PRN (12:04)
[2019-09-17] MEDS ORDERED: MoRPHine SULFATE 2 MG/ML CARP IV PRN ×2 (12:32→12:33)
[2019-09-17] MEDS: OXYCODONE HCL IR 5 MG TAB (IMMEDIATE RELEASE) PO PRN ×3 (12:57→23:30)
[2019-09-17] MEDS: CEFAZOLIN 2000MG 2,000 MG/15 ML SYR IV SCH (17:06)
[2019-09-17] MEDS: LACTATED RINGER'S 1,000 ML IV SCH ×2 (17:06→22:20)
[2019-09-17] MEDS: HEPARIN SOD 5,000 UNIT/0.5 ML VIAL SQ SCH (21:28)
[2019-09-18] MEDS: CEFAZOLIN 2000MG 2,000 MG/15 ML SYR IV SCH (00:19)
[2019-09-18 06:00] LABS: Basophils # (auto) 0.01 K/uL (0-0.2); Basophils % (auto) 0.1 %; Hemoglobin 13.2 g/dL (14.0-18.0); Immature Granulocytes # (auto) 0.01 K/uL (0.00-0.02); Immature Granulocytes % (auto) 0.1 %; Lymphocytes # (auto) 0.86 K/uL (1.2-3.4); Lymphocytes % (auto) 12.2 %; Mean Corpuscular Hemoglobin 30.1 pg (25-34); Mean Corpuscular Hgb Conc 33.8 g/dL (32-36); Mean Platelet Volume 9.8 fL (7.4-10.4); Monocytes # (auto) 0.58 K/uL (0.11-0.59); Monocytes % (auto) 8.2 %; Neutrophils # (auto) 5.61 K/uL (1.4-6.5); Neutrophils % (auto) 79.4 %; Platelet Count 140 K/uL (130-400); RDW Coefficient of Variation 12.3 % (11.5-14.5); RDW Standard Deviation 39.5 fL (36.4-46.3); Red Blood Count 4.38 M/uL (4.7-6.1); White Blood Count 7.07 K/uL (4.8-10.8)
[2019-09-18 06:28] LABS: BUN Creatinine Ratio 10.1 (10-20); Calcium 8.6 mg/dl (8.5-10.1); Est GFR (African American) 37.8; Est GFR (Non-African American) 32.6
--- NOTE | 2019-09-18 07:41 | Urology Progress Note ---
Date of Service September 18, 2019 Assessment & Plan (1) Renal mass: Postop day #1 status post left radical nephrectomy and adrenalectomy for 2 large renal masses and an adrenal mass Recovering appropriately thus far Labs appropriateexpected rise in creatinine thus far Remove Garza catheter Advance diet Continue ambulation Subjective Subjectively doing well He was ambulatory last night Pain is modest Mildly hungry Physical Exam Physical Exam: Incisions appropriate, no ecchymosis or erythema Garza catheter in placeclear urine Constitutional: well developed and well nourished Respiratory: no respiratory distress Cardiovascular: Extremities: no pedal edema Gastrointestinal (Abdomen): Inspection/Auscultation: abdomen normal to inspection Results & Data Vital Signs (Past 12 Hours) Vital Signs Temp Pulse Resp BP Pulse Ox 09/18/19 06:21 37.1 C 73 18 144/73 H 91 09/18/19 03:44 37.4 C 74 16 123/72 92 09/18/19 02:30 37.2 C 09/18/19 00:32 37.3 C 09/17/19 23:16 37.7 C H 65 20 142/73 H 93 09/17/19 19:48 36.7 C 63 20 174/81 H 93 PG Care Time/CCT Total # of Minutes Spent Total Time Spent with Patient: Total time spent is greater than 50% in coordination of care (as documented) at patient's floor/unit and/or counseling patient: Coding Level of Care Code None Diagnoses Renal mass N28.89
[2019-09-18] MEDS: HEPARIN SOD 5,000 UNIT/0.5 ML VIAL SQ SCH ×2 (10:28→20:21)
[2019-09-18] MEDS: OXYCODONE HCL IR 5 MG TAB (IMMEDIATE RELEASE) PO PRN ×2 (10:36→19:46)
[2019-09-19] MEDS ORDERED: TAMSULOSIN HCL 0.4 MG CAP PO ONE (08:26)
[2019-09-19 08:28] LABS: Basophils # (auto) 0.01 K/uL (0-0.2); Basophils % (auto) 0.1 %; Eosinophils # (auto) 0.03 K/uL (0-0.5); Eosinophils % (auto) 0.4 %; Hematocrit (blood only) 39.2 % (42-52); Hemoglobin 13.2 g/dL (14.0-18.0); Immature Granulocytes # (auto) 0.01 K/uL (0.00-0.02); Immature Granulocytes % (auto) 0.1 %; Lymphocytes # (auto) 0.66 K/uL (1.2-3.4); Lymphocytes % (auto) 8.1 %; Mean Corpuscular Hemoglobin 29.9 pg (25-34); Mean Corpuscular Hgb Conc 33.7 g/dL (32-36); Mean Corpuscular Volume 88.9 fL (80-100); Mean Platelet Volume 10.3 fL (7.4-10.4); Monocytes # (auto) 0.59 K/uL (0.11-0.59); Monocytes % (auto) 7.2 %; Neutrophils # (auto) 6.89 K/uL (1.4-6.5); Neutrophils % (auto) 84.1 %; Platelet Count 132 K/uL (130-400); RDW Coefficient of Variation 12.3 % (11.5-14.5); RDW Standard Deviation 39.6 fL (36.4-46.3); Red Blood Count 4.41 M/uL (4.7-6.1); White Blood Count 8.19 K/uL (4.8-10.8)
--- NOTE | 2019-09-19 08:29 | Urology Progress Note ---
Date of Service September 19, 2019 Assessment & Plan (1) Renal mass: (2) Adrenal mass: Postop day 2 status post left adrenalectomy and nephrectomy Continue ambulation Await labs this morning Tentative plan for discharge home after lunch Subjective Doing extremely well Ambulatory Tolerating a diet Waiting on this morning's labs still He is voiding, he reports that he is voiding slightly more frequently than normal with slightly smaller volumes Physical Exam Physical Exam: Incisions appropriate, no ecchymosis, no erythema, abdomen soft Results & Data Vital Signs (Past 12 Hours) Vital Signs Temp Pulse Resp BP BP Pulse Ox 09/19/19 07:35 36.5 C 90 16 169/63 H 90 09/19/19 05:43 171/85 H 180/92 H 09/19/19 04:34 174/91 H 09/18/19 23:20 37.1 C 83 16 172/93 H 90 PG Care Time/CCT Total # of Minutes Spent Total Time Spent with Patient: Total time spent is greater than 50% in coordination of care (as documented) at patient's floor/unit and/or counseling patient: Coding Level of Care Code None Diagnoses Renal mass N28.89 Adrenal mass E27.8
--- NOTE | 2019-09-19 08:34 | Discharge Summary ---
Date of Service September 19, 2019 Admission HPI Per Admitting Provider 79-year-old man with 2 enlarging, solid renal masses on the left as well as a large adrenal mass Presenting for combined nephrectomy and adrenalectomy Principal Diagnosis Renal mass, adrenal mass Discharge Data Allergies Allergy/AdvReac Type Severity Reaction Status Date / Time No Known Allergies Allergy Verified 09/09/19 11:47 Procedures Performed Operation Date: 09/17/19 07:30 Actual Procedures p Laparoscopic Hand Assisted Left Nephrectomy(Left) - Sravan Espino MD s Adrenalectomy - Sravan Espino MD Hospital Course (1) Renal mass: Details of his procedure as dictated previously in the operative report, in summary he tolerated the procedure well and recovered appropriately He was ambulatory on the morning of day 1. He was tolerating a diet. His labs changed but stabilized appropriately with some rise in his creatinine. On the morning of postoperative day 2 he felt very well and was anxious to go home. He was discharged in stable condition and will follow-up as an outpatient (2) Adrenal mass: Total Time Total Time Spent Total Time Spent (In Minutes): 20 Total Time Includes: Examination of the Patient, Discharge Planning, Medication Reconciliation, Communication With Other Providers and Other Discharge Plan Discharge Items Reason For Visit: Renal Mass, Adrenal mass Discharge Diagnosis: renal mass, adrenal mass Activity: Per Instructions section Lifting: No more than 25 pounds Bathing: No limitations Sexual Activity: When tolerated Exercise/Sports: Gradually increase as tolerated Driving/Machine Use: Do not drive while on pain meds. Non-emergency contact: Urologist Call non-emergency contact if: you have any medication questions, your pain is worsening, you have a fever and your temperature is above 101.5 Follow-up/Referrals: Stanislav Chen [Primary Care Provider] - Diet: Regular Addtl Attending Provider Instructions: Please take all medications as prescribed and keep all follow-ups as scheduled. Please call our office at [phone] with any questions, concerns or need to reschedule appointments for any reason. We are happy to assist you. Recovering at home: We recommend having someone with you for the first few days after surgery to help care for you. It is okay to shower tomorrow. Please avoid swimming, bathing or using hot tub until incisions are well healed. Avoid driving until you are not requiring pain medication any further. Walk at least a few times a day. Increase your distance, as you feel able. Stairs in your home are okay. Please avoid strenuous or sexual activity until your follow-up. We recommend using stool softener (i.e. Colace) to prevent constipation and s training, especially the first two weeks post operatively. Call [facility] at [phone] if you experience: Chest pain or trouble breathing (call 493 or go to the hospital). Fever of 101F or higher Symptoms of infection at incision site, including redness or swelling, warmth, or bad-smelling drainage If you have catheter, and you notice: o Bloody urine or drainage that is dark red or has large clots (Please remember a small amount of blood is normal) o No drainage from the catheter for more than 6 hours o The catheter comes out of your bladder Pain that is not controlled with medicines Pending Studies at Discharge: Yes Studies:: pathology Stand-Alone Forms: My [facility] [place], Smoking Cessation Medications and DC Order Prescriptions: New tamsulosin 0.4 mg capsule 0.4 mg PO HS Qty: 30 RF: 11 hydrocodone-acetaminophen 5-325 mg tablet 1 tab PO Q8H PRN (Reason: pain) Qty: 30 RF: 0 No Action No Known Home Medications RF: 0 Admission Data Admit Date/Time: 09/17/19 10:06 Attending Provider: Sravan Espino Admit Provider: Sravan Espino Primary Care Provider: Stanislav Chen Coding Level of Care Code D/C Day Management <30 mins Diagnoses Renal mass N28.89 Adrenal mass E27.8
[2019-09-19 09:01] LABS: BUN Creatinine Ratio 11.3 (10-20); Calcium 8.7 mg/dl (8.5-10.1); Creatinine Clr Calc Pharmacy 31.2 ml/min; Est GFR (African American) 38.1; Est GFR (Non-African American) 32.8; Potassium 3.9 mmol/L (3.5-5.1)
[2019-09-19] MEDS: HEPARIN SOD 5,000 UNIT/0.5 ML VIAL SQ SCH (09:51)
== END 2019-09-19 15:32 | disposition home or self-care (01) ==
LOC: ASU 05:26 → 3W 10:06 → INTOOBSV 10:06